=== PATIENT | female | born 1995 | race Caucasian/White ===

== ENCOUNTER 2017-10-18 19:52 | Emergency (ER) | payer BC ==
[~2017-10-18] VITALS: Ht 162.6 cm; Wt 49.9 kg
[2017-10-18 19:55] VITALS: TEMP 36.8; Ht 162.6 cm; Wt 49.9 kg
[2017-10-18] MEDS ORDERED: ONDANSETRON INJ 2 MG/ML 2 ML VIAL IV STA (20:18)
[2017-10-18] MEDS ORDERED: SODIUM CHLORIDE 0.9% 1000ML 2,000 ML IV STA (20:18)
[2017-10-18] MEDS ORDERED: FAMOTIDINE 20 MG TAB PO ONE (20:30)
--- NOTE | 2017-10-18 20:35 | EMERGENCY ROOM VISIT NOTE ---
History Report prepared by Yaw: Shiv Jay Under the Supervision of: Dr. Jamie Weiss M.D. First contact with patient: 20:17 Chief Complaint: VOMITING Stated Complaint: NAUSEA, VOMITING, UNABLE TO HOLD DOWN LIQUIDS History of Present Illness The patient is a 22 year old female who presents to the Emergency Room with complaints of persistent nausea and vomiting starting this morning around 0300. The patient states that she woke up this morning with nausea and vomiting, and she notes that she has been having diarrhea all day numerous times. She states that she was able to take an Imodium. The patient states that she felt fine yesterday, and she did not do anything abnormal yesterday, and she drank two drinks of alcohol last night which is not abnormal for her. The patient additionally notes that she has been having a sharp pain in her abdomen, and she has lower back pain as well. She denies any fever, cough, congestion, burning with urination, and vaginal discharge. The patient states that she takes medications for ADHD and depression, and she states that she has been seeing a therapist. She notes that she takes control, she does not think that she is , and she states that her last cycle was three weeks ago. She denies any history of abdominal surgery. Source of History: patient Onset: 0300 this morning Position: other (global) Quality: other (nausea and vomiting) Timing: other (persistent) Associated Symptoms: + abdominal pain, + back pain, + diarrhea, No fevers, No chills, No cough Review of Systems See HPI for pertinent positives and negatives. A total of ten systems were reviewed and were otherwise negative. Past Medical & Surgical Medical Problems: (1) ADHD (2) Depression Social History Housing Status: lives with roommate Occupation Status: [employer] student Current/Historical Medications Scheduled Ondasetron Odt (Zofran Odt), 4 MG SL Q6H Scheduled PRN Famotidine (Pepcid), 20 MG PO BID PRN for GI Upset Physical Exam Vital Signs Date Time Temp Pulse Resp B/P (MAP) Pulse Ox O2 Delivery O2 Flow Rate FiO2 10/18/17 23:11 98 16 118/78 99 10/18/17 21:24 74 16 122/77 99 Room Air 10/18/17 19:55 36.8 87 18 126/54 100 Room Air Physical Exam GENERAL: Awake, alert, fatigued-appearing, in no distress HENT: Normocephalic, atraumatic. Dry mucous membranes otherwise oropharynx unremarkable. EYES: Normal conjunctiva. Sclera non-icteric. NECK: Supple. No nuchal rigidity. FROM. No JVD. RESPIRATORY: Clear to auscultation. CARDIAC: Regular rate, normal rhythm. Extremities warm and well perfused. Pulses equal. ABDOMEN: Soft, non-distended. Mild epigastric discomfort with no discrete tenderness. No rebound or guarding. No masses. RECTAL: Deferred. MUSCULOSKELETAL: Chest examination reveals no tenderness. The back is symmetrical on inspection without obvious abnormality. There is no CVA tenderness to palpation. No joint edema. LOWER EXTREMITIES: Calves are equal size bilaterally and non-tender. No edema. No discoloration. NEURO: Normal sensorium. No sensory or motor deficits noted. SKIN: No rash or jaundice noted. Medical Decision & Procedures Laboratory Results 10/18/17 20:20 Red Blood Count 5.12, Mean Corpuscular Volume 86.7, Mean Corpuscular Hemoglobin 31.4, Mean Corpuscular Hemoglobin Concent 36.3, Mean Platelet Volume 8.8, Neutrophils (%) (Auto) 78.2, Lymphocytes (%) (Auto) 14.7, Monocytes (%) (Auto) 6.3, Eosinophils (%) (Auto) 0.5, Basophils (%) (Auto) 0.1, Neutrophils # (Auto) 7.11, Lymphocytes # (Auto) 1.34, Monocytes # (Auto) 0.57, Eosinophils # (Auto) 0.05, Basophils # (Auto) 0.01 10/18/17 20:20 Test 10/18/17 20:20 10/18/17 20:30 White Blood Count 9.10 K/uL (4.8-10.8) Red Blood Count 5.12 M/uL (4.2-5.4) Hemoglobin 16.1 g/dL (12.0-16.0) Hematocrit 44.4 % (37-47) Mean Corpuscular Volume 86.7 fL (80-100) Mean Corpuscular Hemoglobin 31.4 pg (25-34) Mean Corpuscular Hemoglobin Concent 36.3 g/dl (32-36) Platelet Count 229 K/uL (130-400) Mean Platelet Volume 8.8 fL (7.4-10.4) Neutrophils (%) (Auto) 78.2 % Lymphocytes (%) (Auto) 14.7 % Monocytes (%) (Auto) 6.3 % Eosinophils (%) (Auto) 0.5 % Basophils (%) (Auto) 0.1 % Neutrophils # (Auto) 7.11 K/uL (1.4-6.5) Lymphocytes # (Auto) 1.34 K/uL (1.2-3.4) Monocytes # (Auto) 0.57 K/uL (0.11-0.59) Eosinophils # (Auto) 0.05 K/uL (0-0.5) Basophils # (Auto) 0.01 K/uL (0-0.2) RDW Standard Deviation 41.7 fL (36.4-46.3) RDW Coefficient of Variation 13.0 % (11.5-14.5) Immature Granulocyte % (Auto) 0.2 % Immature Granulocyte # (Auto) 0.02 K/uL (0.00-0.02) Anion Gap 6.0 mmol/L (3-11) Est Creatinine Clear Calc Drug Dose 83.8 ml/min Estimated GFR () 116.0 Estimated GFR (Non- 100.1 BUN/Creatinine Ratio 23.9 (10-20) Calcium Level 8.4 mg/dl (8.5-10.1) Total Bilirubin 1.3 mg/dl (0.2-1) Direct Bilirubin 0.3 mg/dl (0-0.2) Aspartate Amino Transf (AST/SGOT) 16 U/L (15-37) Alanine Aminotransferase (ALT/SGPT) 18 U/L (12-78) Alkaline Phosphatase 58 U/L (45-117) Total Protein 7.3 gm/dl (6.4-8.2) Albumin 3.8 gm/dl (3.4-5.0) Lipase 66 U/L (73-393) Human Chorionic Gonadotropin, Qual NEG (NEG) Influenza Type A (RT-PCR) Neg for Influ A (NEG) Influenza Type B (RT-PCR) Neg for Influ B (NEG) Laboratory results reviewed by me Medications Administered Medications (Trade) Dose Ordered Sig/Thiago Route Start Time Stop Time Status Last Admin Dose Admin Sodium Chloride 2,000 ml @ 999 mls/hr Q2H1M STAT IV 5/2/18 20:18 10/18/17 22:18 DC 10/18/17 20:31 999 MLS/HR Ondansetron HCl (Zofran Inj) 4 mg NOW STAT IV 10/18/17 20:18 10/18/17 20:24 DC 10/18/17 20:31 4 MG Famotidine (Pepcid Tab) 20 mg NOW ONCE PO 10/18/17 20:30 10/18/17 20:31 DC 10/18/17 20:31 20 MG Ketorolac Tromethamine (Toradol Inj) 15 mg NOW STAT IV 10/18/17 22:55 10/18/17 22:57 DC 10/18/17 23:02 15 MG Acetaminophen (Tylenol Tab) 1,000 mg NOW STAT PO 10/18/17 22:55 10/18/17 22:57 DC 10/18/17 23:03 1,000 MG Ondansetron HCl (ZOFRAN ODT 4MG Home Pack) 1 homepack UD ONCE PO 10/18/17 23:00 10/18/17 23:01 DC 10/18/17 23:03 1 HOMEPACK ED Course 2017: The patient was evaluated in room C11. A complete history and physical exam was performed. 2149: I reevaluated the patient. Discussed results and discharge instructions: she verbalized understanding and agreement. The patient is ready for discharge. Medical Decision I reviewed the patient's past medical history, medications, and the nursing notes as described above. Differential diagnosis: Etiologies such as gastroenteritis, food borne illness, infections, appendicitis , diverticulitis, inflammatory bowel disease, obstruction, GI bleed, biliary pathology, as well as others were entertained. The patient is a 22 y/o woman presents to the ED with n/v/d that began to day per HPI. On arrival the patient is fatigued in NAD, AFVSS. Mild epigastric discomfort without discrete ttp. Negative hsu's sign. WBC wnl. Chemistry c/w mild dehydration with BUN/Cr > 20 and mildly elevated Tbili. Patient feeling improved after IVF, zofran, pepcid. Sx most c/w viral gastroenteritis. Given reassuring exam and w/u no indication for imaging or further testing at this time. Patient did complain of leg cramping and so was given APAP/toradol prior to discharge. Patient encouraged to ensure hydration. Plan for [facility] f/u. Findings and plan for follow-up reviewed with patient. Patient agreeable and d/c 'd per discharge instructions. Medication Reconcilliation Current Medication List: was personally reviewed by me Blood Pressure Screening Patient's blood pressure: Normal blood pressure Impression Primary Impression: Gastroenteritis Scribe Attestation The scribe's documentation has been prepared under my direction and personally reviewed by me in its entirety. I confirm that the note above accurately reflects all work, treatment, procedures, and medical decision making performed by me. Departure Information Dispostion Home / Self-Care Prescriptions Famotidine (PEPCID) 20 Mg Tab 20 MG PO BID Y for GI Upset for 7 Days, #14 TAB Prov: Jamie Weiss M.D. 10/18/17 Ondasetron Odt (ZOFRAN ODT) 4 Mg Tab 4 MG SL Q6H for Nausea, #10 TAB Prov: Jamie Weiss M.D. 10/18/17 Forms HOME CARE DOCUMENTATION FORM, IMPORTANT VISIT INFORMATION Patient Instructions ED Gastroenteritis Viral, My [facility] Additional Instructions Please follow up with S in the next 1-3 days for re-evaluation. You likely have a viral GI illness. Otherwise, your exam and lab results did not show signs of an emergent condition at this time. Acetaminophen or ibuprofen for pain and fevers as needed. Zofran as needed for nausea. Pepcid as needed for GI upset/acid reduction. Drink plenty of fluids to ensure hydration. Return to the emergency department for worsening symptoms as described in the accompanying instructions.
[2017-10-18 20:48] LABS: BASO % 0.1 %; BASO ABS # 0.01 K/uL (0-0.2); EOS % 0.5 %; EOS ABS # 0.05 K/uL (0-0.5); HEMATOCRIT 44.4 % (37-47); HEMOGLOBIN 16.1 g/dL (12.0-16.0); IG# 0.02 K/uL (0.00-0.02); LYMPH % 14.7 %; LYMPH ABS # 1.34 K/uL (1.2-3.4); MEAN CELL VOLUME 86.7 fL (80-100); MEAN CORPUSCULAR HEMOGLOBIN 31.4 pg (25-34); MEAN CORPUSCULAR HGB CONC 36.3 g/dl (32-36); MEAN PLATELET VOLUME 8.8 fL (7.4-10.4); MONO % 6.3 %; MONO ABS # 0.57 K/uL (0.11-0.59); NEUT % 78.2 %; NEUT ABS # 7.11 K/uL (1.4-6.5); PLATELET COUNT 229 K/uL (130-400); RED CELL DISTRIBUTION WIDTH SD 41.7 fL (36.4-46.3)
[2017-10-18 21:04] LABS: ALBUMIN 3.8 gm/dl (3.4-5.0); CALCIUM 8.4 mg/dl (8.5-10.1); CREATININE 0.83 mg/dl (0.60-1.20); POTASSIUM 3.7 mmol/L (3.5-5.1)
[2017-10-18 21:07] LABS: TOTAL PROTEIN 7.3 gm/dl (6.4-8.2)
[2017-10-18 21:23] LABS: INFLUENZA A PCR Neg for Influ A (NEG); INFLUENZA B PCR Neg for Influ B (NEG)
[2017-10-18] MEDS ORDERED: ONDA4TAB10 SL (22:12)
[2017-10-18] MEDS ORDERED: FAMO20TA9 PO (22:12)
[2017-10-18] MEDS ORDERED: KETOROLAC TROMETHAMINE 30 MG/ML VIAL IV STA (22:55)
[2017-10-18] MEDS ORDERED: ACETAMINOPHEN 500 MG TAB PO STA (22:55)
[2017-10-18] MEDS ORDERED: ONDANSETRON HOME PACK 4MG OD TAB PO ONE (23:00)
[2017-10-18 23:11] VITALS: BP 118/78; PULSE 98; O2SAT 99
== END 2017-10-18 23:12 | disposition home or self-care (01) ==
LOC: C.EDB 19:54 → C.EDC 23:12
DX: K52.9 Noninfective gastroenteritis and colitis, unspecified (principal); R11.2 Nausea with vomiting, unspecified; R19.7 Diarrhea, unspecified; F90.9 Attention-deficit hyperactivity disorder, unspecified type; F32.9 Major depressive disorder, single episode, unspecified